=== PATIENT | female | born 1990 | race African-American/Black ===

== ENCOUNTER 2023-10-05 18:37 | Emergency (ER) | payer OTHER, SELFPAY ==
[2023-10-05 18:54] VITALS: BP 120/78; PULSE 74; RESP 16; TEMP 37; O2SAT 98; BMI 28.3
--- NOTE | 2023-10-05 18:57 | ED_ITS ---
HPI - General Adult General Chief complaint: Skin/Abscess/Foreign Body Stated complaint: 'something' on armpit since this am Time Seen by Provider: 10/05/23 21:04 Source: patient Mode of arrival: ambulatory Limitations: no limitations History of Present Illness ED Provider: LAKESHIA VILLARREAL narrative: 33 yo female with well controlled HIV here with c/o abscess to R axilla for 3 days no hx of this in the past no hx of MRSA did not try anything at home to get rid of it. complaint: abscess Onset (ago): day(s) (3) Location: right and upper extremity Radiation: non-radiation Severity: moderate Quality: aching Pain Consistency: constant Relieving factors: immobilization Exacerbating factors: movement Associated symptoms: denies other symptoms Treatments prior to arrival: none Related Data Previous Rx's ?Medication ?Instructions ?Recorded doxycycline hyclate 100 mg capsule 100 mg PO BID 7 days #14 caps 10/05/23 Allergies Allergy/AdvReac Type Severity Reaction Status Date / Time aspirin Allergy Unknown Verified 10/05/23 18:57 sulfamethoxazole Allergy bleeding Verified 10/05/23 18:57 [From Bactrim] lips trimethoprim [From Bactrim] Allergy bleeding Verified 10/05/23 18:57 lips Review of Systems Review of Systems: Constitutional : No Fever, No Chills ENT/Mouth : No sore throat, No Rhinorrhea Eyes: No Eye Pain, No Swelling, No Redness Cardiovascular : No Chest Pain, No SOB Respiratory : No Cough, No Sputum Gastrointestinal : No Nausea, No Vomiting, No Diarrhea, No abdominal Pain Genitourinary : No Dysuria, No Hematuria Musculoskeletal : No joint pain, No Myalgias, No Joint Swelling Skin : No Skin Lesions, positive skin abscess Neuro : No Weakness, No Numbness, No Headache Psych : No Anxiety, No Depression All other systems reviewed and are negative PMFSH Past Medical History Attestation statement: The following information was validated with the patient. Source: old records reviewed Medical History AIDS (acquired immune deficiency syndrome) Social History Social History (Updated 10/05/23 @ 22:04 by Shweta Pro DO) Patient Tobacco Use Status: Never used Tobacco Physical Exam ED Vital Signs: Vital Signs - 24 hr 10/05/23 18:54 Temperature 98.6 F Pulse Rate 74 Respiratory Rate 16 Blood Pressure 120/78 Pulse Oximetry 98 Oxygen Delivery Method Room Air BMI result Body Mass Index 28.3 Appearance: Alert. Oriented X3. No acute distress. Eyes: Pupils equal, round and reactive to light. ENT: Pharynx normal. Neck: Normal inspection. Neck supple. CVS: Normal heart rate and rhythm. Pulses normal. Respiratory: No respiratory distress. Breath sounds normal. Abdomen: Soft and nontender. Skin: Skin warm and dry. Normal skin color. Normal skin turgor. Extremities: No lower extremity edema. R axilla fluctuanct 3 cm abscess no surrounding cellulitis Neuro: Oriented X 3. No motor deficit. No sensory deficit. Course Course Course Narrative: RME performed by Ruby Downing PA-C. Patient is a 33 year old assigned female at presenting to the emergency department with a swollen hard area in her right armpit. Detailed physical exam and review of systems are deferred to the hydrometeorology teacher. Patient placed back in the waiting room pending room availability. Medications Administered Discontinued Medications Generic Name Dose Route Start Last Admin Trade Name Melisa PRN Reason Stop Dose Admin Doxycycline Monohydrate 100 mg 10/05/23 21:27 10/05/23 21:37 Doxycycline Monohydrate 100 Mg Capsule PO 10/05/23 21:28 100 mg ONCE ONE Administration Lidocaine HCl 1 appl 10/05/23 21:27 10/05/23 21:37 Lidocaine 4 % Cream Kit TOPICAL 10/05/23 21:28 1 appl ONCE ONE Administration Protocol Lidocaine HCl 5 ml 10/05/23 21:27 10/05/23 21:37 Lidocaine Hcl 1 % Mpf 5 Ml Vial SUBCUT 10/05/23 21:28 5 ml ONCE ONE Administration Ondansetron HCl 4 mg 10/05/23 21:27 10/05/23 21:37 Ondansetron Odt 4 Mg Tab.Rapdis TRANSLINGU 10/05/23 21:28 4 mg ONCE ONE Administration Procedures Abscess I/D Site: upper extremity Side (if applicable): right Local Anesthetic: lidocaine 1% Amount of anesthesia used (mL): 3 Technique: incised with blade Amount of fluid expressed (mL): 5 Sent for culture/gram staining?: No Irrigation: Yes Packing used?: iodoform Medical Decision Making Medical Decision Making MDM Narrative: 33 yo female with well controlled HIV here with c/o isolated abscess to axilla at this time will I+D and start on doxy she has no systemic symptoms is not toxic appearing. Will send home with strict wound precautions Differential Diagnosis Differential Diagnoses: The differential diagnosis associated with the presentation includes abscess Admission/Observation Consideration of admission/observation: Escalation of care including admission/observation considered not toxic no systemic symptoms can be managed as outpatient External Record Review External record reviewed: Office record Prescription Management I considered prescription management with: Antibiotic Discharge Plan Discharge Clinical Impression: Abscess of skin or subcutaneous tissue Qualifiers: Site of cutaneous abscess: extremity Site of cutaneous abscess of extremity: axilla Laterality: right Qualified Code(s): L02.411 - Cutaneous abscess of right axilla Patient Disposition: Home, Self-Care Instructions: Abscess (ED), Incision and Drainage (ED) Additional Instructions: okay to shower tomorrow remove packing in 48 hours okay if it falls out sooner return for worsening swelling pain or fevers no pool, [place] for 10 days On doxycycline, do not take pills immediately before going to bed and swallow pills with plenty of water. Avoid direct sunlight, iron, antacids, and Pepto Bismol. Call your provider if you develop new ringing in your ears, new problems hearing, dizziness, difficulty swallowing, rash, abdominal discomfort, nausea, or diarrhea.? Prescriptions: New doxycycline hyclate 100 mg capsule 100 mg PO BID 7 Days Qty: 14 0RF Stand Alone Forms: Work/School Release Print Language: Sammarinese
[2023-10-05] MEDS: Lidocaine HCl 1 % MPF 5 ML VIAL SUBCUT (21:37)
[2023-10-05] MEDS: Doxycycline Monohydrate 100 MG CAPSULE PO (21:37)
[2023-10-05] MEDS: Ondansetron ODT 4 MG TAB.RAPDIS TRANSLINGU (21:37)
[2023-10-05] MEDS: Lidocaine 4 % Cream KIT 1 APPL TOPICAL (21:37)
[2023-10-05 22:30] VITALS: BP 118/64; PULSE 72; RESP 16; TEMP 36.6; O2SAT 98
== END 2023-10-05 22:34 | disposition home or self-care (01) ==
PROVIDERS: Emergency Provider Emergency Medicine
DX: L02.411 Cutaneous abscess of right axilla (principal); B20 Human immunodeficiency virus [HIV] disease; Z86.14 Personal history of Methicillin resistant Staphylococcus aureus infection
CPT/HCPCS: 10060; 99283; 99284